=== PATIENT | male | born 1970 | race African-American/Black ===

== ENCOUNTER 2016-09-27 15:48 | Emergency (ER) | payer OTHER ==
[~2016-09-27] VITALS: Ht 185.4 cm; Wt 125.0 kg
[~2016-09-27 15:48] MED LIST: AMLO10 PO; OMEP20TA OR; VENTAER INH
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
[2016-09-27 15:59] VITALS: BP 230/133; PULSE 96; RESP 20; TEMP 98.1; O2SAT 96
[2016-09-27] MEDS ORDERED: MORPHINE SULFATE 4 MG/ML INJ IV PUSH ONE (16:15)
[2016-09-27] MEDS ORDERED: ENALAPRILAT 1.25 MG/ML VIAL IV PUSH ONE (16:15)
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
[2016-09-27 17:13] VITALS: BP 198/121; PULSE 83; RESP 18; O2SAT 96
[2016-09-27] MEDS ORDERED: AMLO10TA2 PO (17:19)
[2016-09-27] MEDS ORDERED: TYLETAB34 PO (17:19)
== END 2016-09-27 18:14 | disposition home or self-care (01) ==
LOC: NEPC 15:48
DX: S16.1XXA Strain of muscle, fascia and tendon at neck level, initial encounter (principal); S39.012A Strain of muscle, fascia and tendon of lower back, initial encounter; I10 Essential (primary) hypertension; Z86.79 Personal history of other diseases of the circulatory system; Z87.09 Personal history of other diseases of the respiratory system; Z87.19 Personal history of other diseases of the digestive system; V89.2XXA Person injured in unspecified motor-vehicle accident, traffic, initial encounter; Y92.410 Unspecified street and highway as the place of occurrence of the external cause
CPT/HCPCS: 71010; 72100; 72125; 96374; 96375; 99284; J2270